=== PATIENT | female | born 1960 | race Caucasian/White ===

== ENCOUNTER 2017-03-17 11:44 | Inpatient (IN) | payer OTHER ==
[~2017-03-17] VITALS: Ht 160 cm; Wt 112.9 kg
--- NOTE | ~2017-03-17 | EKG ---
[address] [address] ELECTROCARDIOGRAM REPORT Name: JORDAN TAVERAS Room #: 459-P ADM IN M.R.#: [id number] Admission: 03/17/17 Attend Phys: Tarun Lopez MD Discharge: Date of : 62 Report #: [id number] THIS REPORT FOR: //name// [facility] ED Test Date: 2017-03-17 Test Time: 13:23:40 Pat Name: JORADN TAVERAS Department: Room: 459 Gender: F [employer] Set Up Operator: zainab : 1960 Requested By: Patrick Morales Order Number: [id number] MD: Jerod Chowdhury Measurements Intervals [place] Rate: 70 P: 32 ND: 158 QRS: 0 QRSD: 83 T: 12 QT: 417 QTc: 450 Interpretive Statements Sinus rhythm Low voltage, precordial leads Consider anterior infarct Compared to ECG 10/16/1993 18:18:00 Low QRS voltage now present Myocardial infarct finding now present T-wave abnormality no longer present Prolonged QT interval no longer present Electronically Signed On 03-17-2017 21:20:41 CDT by Jerod Chowdhury [email or web address] <ELECTRONICALLY SIGNED> By: Jerod Chowdhury MD 03/17/17 2120 1323 132 Jerod Chowdhury MD /EPI
[2017-03-17 11:44] VITALS: BP 132/82
[2017-03-17] MEDS ORDERED: FARXIGA5 MG PO (12:38)
[2017-03-17] MEDS ORDERED: ZOLOFT50 MG PO (12:39)
[2017-03-17] MEDS ORDERED: GLUCOPHAGE XR500 MG PO (12:39)
[2017-03-17 13:05] LABS: HEMOGLOBIN 14.1 gm/dL (12.0-15.0); MCH 27.1 pg (26.0-34.0); MCHC 32.8 g/dL (28.0-37.0); MCV 82.5 fL (80.0-100.0); RBC 5.21 mil/uL (4.20-5.00); WBC 11.6 thou/uL (4.0-11.0)
[2017-03-17 13:07] LABS: ANION GAP 11 mmol/L (7-16); BUN 12 mg/dL (7-18); CALCIUM 8.9 mg/dL (8.5-10.1); CHLORIDE 101 mmol/L (98-107); CO2 26 mmol/L (21-32); CREATININE 0.9 mg/dL (0.6-1.0); GLUCOSE 178 mg/dL (74-106); POTASSIUM 4.4 mmol/L (3.5-5.1); SODIUM 138 mmol/L (136-145)
[2017-03-17 13:15] LABS: TROPONIN-I < 0.04 ng/mL (<0.04-0.07)
[2017-03-17 13:16] LABS: APTT 25.4 Seconds (24.5-32.8)
[2017-03-17 15:30] VITALS: BP 122/69
[2017-03-17 16:40] VITALS: BP 131/65
[2017-03-17 17:10] LABS: URINE BILIRUBIN NEGATIVE (Negative); URINE BLOOD NEGATIVE (Negative); URINE COLOR YELLOW; URINE GLUCOSE-RANDOM* 2+ (Negative); URINE KETONES TRACE (Negative); URINE LEUKOCYTES-REFLEX NEGATIVE (Negative); URINE PROTEIN (DIPSTICK) 1+ (Negative); URINE SPECIFIC GRAVITY >= 1.030 (1.003-1.035); URINE UROBILINOGEN 0.2 E.U./dl (0.2-1.0)
[2017-03-17 17:16] LABS: SQUAMOUS 0-3 Few /LPF (0-3); URINE WBC-REFLEX 0-5 Rare /HPF (0-5)
[2017-03-17 17:17] LABS: CASTS None Seen /LPF (None Seen); CRYSTALS None Seen /LPF (None Seen); URINE RBC None Seen /HPF (0-2)
[2017-03-17 19:28] VITALS: BP 118/61
[2017-03-17 20:06] LABS: GLYCOHEMOGLOBIN (HGB A1C) 6.4 % (4.8-5.6)
[2017-03-17 23:46] VITALS: BP 128/60
[2017-03-18 04:08] VITALS: BP 112/70
[2017-03-18 04:46] LABS: HEMATOCRIT 38.5 % (37.0-47.0); HEMOGLOBIN 12.6 gm/dL (12.0-15.0); MCHC 32.8 g/dL (28.0-37.0); MCV 82.4 fL (80.0-100.0); RBC 4.67 mil/uL (4.20-5.00); RDW 16.3 % (10.5-14.5); WBC 13.1 thou/uL (4.0-11.0)
[2017-03-18 05:06] LABS: CALCIUM 8.3 mg/dL (8.5-10.1); CREATININE 0.9 mg/dL (0.6-1.0); POTASSIUM 3.8 mmol/L (3.5-5.1)
[2017-03-18 05:26] LABS: CHOLESTEROL 163 mg/dL (<200); HDL CHOLESTEROL 46 mg/dL (>40); LDL CHOLESTEROL 86 mg/dL (<100); TC:HDL 3.5 Ratio (Not establshd); TRIGLYCERIDE 159 mg/dL (<150); VLDL 32 mg/dL (<40)
[2017-03-18 05:30] LABS: SERUM ASSESSMENT Clear
[2017-03-18 06:39] LABS: TSH 1.694 uIU/mL (0.358-3.740)
[2017-03-18 07:45] VITALS: BP 138/68
[2017-03-18] MEDS ORDERED: ATORVASTATIN CA10 MG PO (10:34)
[2017-03-18] MEDS ORDERED: ASPIR 8181 MG PO (10:34)
[2017-03-18] MEDS ORDERED: ANTIVERT25 MG PO (10:34)
[2017-03-18] MEDS ORDERED: ZOFRAN ODT4 MG PO (10:39)
[2017-03-18 10:42] VITALS: BP 138/68
[2017-03-20 14:12] LABS: ALPHA TOCOPHEROL 8.8 mg/L (5.3-16.8)
== END 2017-03-18 11:35 | disposition home or self-care (01) | DRG 69 ==
LOC: ER 11:44 → EROBS 14:26 → 4W 14:26
PROVIDERS: Emergency Medicine; Hospitalist; Nurse Practitioner; Psychiatry & Neurology Neurology
DX: G45.9 Transient cerebral ischemic attack, unspecified (principal); E11.65 Type 2 diabetes mellitus with hyperglycemia; E78.1 Pure hyperglyceridemia; F32.9 Major depressive disorder, single episode, unspecified; Z79.899 Other long term (current) drug therapy; Z79.82 Long term (current) use of aspirin; Z88.6 Allergy status to analgesic agent; Z82.49 Family history of ischemic heart disease and other diseases of the circulatory system; Z80.9 Family history of malignant neoplasm, unspecified; Z83.3 Family history of diabetes mellitus
CPT/HCPCS: 10045